=== PATIENT | male | born 1960 | race Caucasian/White ===

== ENCOUNTER 2020-10-24 08:45 | Day surgery (SDC) | payer OTHER ==
[~2020-10-24 08:45] MED LIST: Lactated Ringers 1,000 ML IV SCH; Sodium Chloride 0.9% 10 ML Syringe FLUSH PRN
[2020-10-24] MEDS ORDERED: Lidocaine 2% 5 ML SDV INJECT ONE ×2 (08:46)
[2020-10-24] MEDS ORDERED: Propofol 200 MG/20 ML SDV IV ONE (08:46)
--- NOTE | 2020-10-24 10:56 | PCM.OPNOTE ---
- General Post-Op/Procedure Note Date of Surgery/Procedure: 10/24/20 Operative Procedure(s): egd with cold forcep biopsy. c scope Findings: mild gastritis Pre Op Diagnosis: Fe def anemia. hx of gerd Post-Op Diagnosis: gastritis. nl c scope Anesthesia Technique: MAC Primary Surgeon: Patrick Glass Anesthesia Provider: David Smith Pathology: stomach Complications: None Condition: Good Free Text/Narrative:: see dictation
--- NOTE | 2020-10-24 13:20 | OR ---
DATE OF OPERATION: 10/24/2020 SURGEON: Patrick Glass MD PROCEDURES PERFORMED: 1. Upper endoscopy with cold forceps biopsy. 2. Colonoscopy. PREOPERATIVE DIAGNOSES: 1. History of iron deficiency anemia. 2. Gastroesophageal reflux disease. POSTOPERATIVE DIAGNOSES: 1. Mild gastritis. 2. Normal colonoscopic examination. INDICATIONS FOR PROCEDURE: This is a 60-year-old white male referred with a diagnosis of anemia. He was recently found to have an iron deficiency anemia on routine rotary blood screen. He is asymptomatic except for some mild gastroesophageal reflux disease. He was offered and accepted an upper and lower endoscopy. DESCRIPTION OF PROCEDURE: After an excellent IV sedation was administered, the bite block was inserted. Flexible endoscope was passed without difficulty down the patient's esophagus into the stomach. The stomach was insufflated. Scope passed through the pylorus and second portion of the duodenum and slowly withdrawn. The following findings were noted: Duodenum was unremarkable. Stomach demonstrated very mild gastritis. The esophagus was essentially unremarkable. GE junction measured at 40 cm. No evidence of any kind of erythema or abnormality. The stomach was deflated. Scope was removed. Our attention was then turned to the colon. Digital rectal exam was performed. No marked abnormality was noted. Flexible colonoscope was inserted and advanced to the cecum. After identifying the cecum by its anatomic landmarks, the scope was slowly withdrawn. Mucosa carefully inspected. The following findings were noted: Ascending colon unremarkable. Transverse colon unremarkable. Descending colon unremarkable. Sigmoid and rectum unremarkable. Colon was deflated. Scope was removed. The patient tolerated the procedures well. RECOMMENDATIONS: Follow up with PCP for further workup as needed for his anemia. Repeat colonoscopy in 10 years. /[id number] /MODL
--- NOTE | 2020-10-30 17:00 | OR ---
DATE OF OPERATION: 10/24/2020 SURGEON: Patrick Glass MD ADDENDUM: Please note that during the upper endoscopy, biopsies were taken of the antrum as well as the body of the stomach using the cold forceps biopsies. The specimen was submitted in a container for pathologic review. /[id number] /MODL
== END 2020-10-24 11:35 | disposition home or self-care (01) ==
LOC: FB.SDS 08:45
PROVIDERS: ATTEND Surgery
DX: D50.9 Iron deficiency anemia, unspecified (principal); K29.50 Unspecified chronic gastritis without bleeding; K25.9 Gastric ulcer, unspecified as acute or chronic, without hemorrhage or perforation; B96.81 Helicobacter pylori [H. pylori] as the cause of diseases classified elsewhere; K21.9 Gastro-esophageal reflux disease without esophagitis; I10 Essential (primary) hypertension; Z79.899 Other long term (current) drug therapy
CPT/HCPCS: 00813-QZ; 88305; J2001; J2704; J7120